=== PATIENT | female | born 1955 | race Caucasian/White ===

== ENCOUNTER 2016-10-04 08:53 | Day surgery (SDC) | payer BC ==
[~2016-10-04 08:53] MED LIST: ACETAMINOPHEN 1000MG/100 ML PREMIX IV ONE
[2016-10-04] MEDS ORDERED: SEVOFLURANE 250 ML INH ONE (14:00)
[2016-10-04] MEDS ORDERED: MEPERIDINE 50 MG/1 ML VIAL IVP ONE (14:00)
[2016-10-04] MEDS ORDERED: KETOROLAC 30 MG/ML VIAL IVP ONE (14:00)
[2016-10-04] MEDS ORDERED: LIDOCAINE 2% MDV (20MG/ML) 20ML VIAL IV ONE (14:00)
[2016-10-04] MEDS ORDERED: BUPIVACAINE 0.25% W/EPI MPF 30ML VIAL IVP ONE (14:27)
--- NOTE | 2016-10-06 11:45 | Operative Note ---
DATE OF SURGERY: 10/04/2016 Surgeon: Gavino Wong DO PREOPERATIVE DIAGNOSES: 1. Torn medial meniscus of the right knee. 2. Chondromalacia of the right knee. POSTOPERATIVE DIAGNOSES: 1. Torn medial meniscus, right knee. 2. Synovitis, right knee. 3. Osteoarthritis, right knee. OPERATIVE PROCEDURES: 1. Arthroscopic partial medial meniscectomy, right knee. 2. Arthroscopic partial synovectomy, right knee. 3. Arthroscopic chondroplasty of the trochlea, right knee. PROCEDURE: This 61-year-old female was taken to the operating room and placed in the supine position on the operating room table. A general anesthetic was administered. The right lower extremity was elevated, exsanguinated, and the tourniquet inflated to 300 mmHg. Arthroscopic knee cox applied. Right knee prepped with Hibiclens and draped in the usual sterile fashion. An inferolateral portal was established for the 4 mm arthroscope and initial evaluation of the joint demonstrated advanced degenerative disease at the patellofemoral joint with grade 2 changes noted at the patella; however, the trochlea demonstrated severe degenerative change with grade 3 lesion noted throughout. Only patches of articular cartilage were present. Multiple cartilaginous loose bodies were in the suprapatellar pouch, and these were suctioned from the joint. The medial compartment was entered and much more severe osteoarthritis was present there with severe full-thickness defect on the medial edge of the medial femoral condyle and tibial plateau. This extended from about the 2-o'clock position all the way around to about the 7-o'clock position near the anterior insertion of the medial meniscus. A marked disruption of the medial meniscus was present, a horizontal cleavage tear with flap components also being identified, the apex of the tear being at about the 12-o'clock position. We utilized the basket forceps and rotating shaver to resect unstable fragments of the meniscus. It was then re-probed and confirmed to be stable. The grade 4 lesion on the medial femoral condyle went from the meniscal rest all the way as far back as could be seen. This was about 1.5 cm wide, the remainder being severe grade 3 changes. The patient had a very large osteophyte in the intercondylar notch which did make manipulation of the instruments somewhat more difficult. The patient did have synovitis in the anterior aspect of the medial compartment and a partial synovectomy was performed. The intercondylar notch was examined and found to be normal. The lateral compartment was entered and the lateral compartment was seen to be normal. Probing of the lab meniscus did not reveal any pathology. The joint was then copiously irrigated and reexamined with no additional findings being present. The joint was suctioned. The instruments were removed. The portals infiltrated with 0.25% Marcaine with epinephrine. Sterile dressings applied. Tourniquet and knee cox released. The patient was taken to the recovery room in satisfactory condition. GROSS PATHOLOGY: This patient demonstrated a severe complex tear of the posterior horn and body of the medial meniscus. In addition, severe osteoarthritis of the medial compartment was present as described above with severe degenerative change also at the patellofemoral joint with the lateral compartment being relatively spared. There was a relatively large osteophyte about 1.5 cm in greatest dimension in the intercondylar notch. This was not removed. CC: Inna FERREIRA
== END 2016-10-04 12:55 | disposition home or self-care (01) ==
LOC: SUR 08:53
PROVIDERS: ATTEND Orthopaedic Surgery
DX: S83.241A Other tear of medial meniscus, current injury, right knee, initial encounter (principal); M94.261 Chondromalacia, right knee; M65.9 Synovitis and tenosynovitis, unspecified
CPT/HCPCS: 29881; 29875; 01400; J1885